=== PATIENT | male | born 1970 ===

== ENCOUNTER 2018-05-15 12:53 | Emergency (ER) | payer MEDICAID ==
[2018-05-15] MEDS ORDERED: Lidocaine 5% Patch TD STA (13:33)
--- NOTE | 2018-05-15 14:10 | RAD ---
Date of service: 05/15/2018 PROCEDURE: Radiographs of the Lumbar Spine. HISTORY: pain COMPARISON: No prior. FINDINGS: BONES: Normal alignment. No listhesis. No fracture. DISC SPACES: Mild multilevel disc space narrowing with lower lumbar anterior osteophytic changes OTHER FINDINGS: None. IMPRESSION: No acute fracture. Mild multilevel degenerative changes.
[2018-05-15] MEDS ORDERED: Lidocaine 5% Patch TD ONE (14:27)
[2018-05-15 14:38] LABS: BARBITURATES, UR NEGATIVE (NEGATIVE); BENZODIAZEPINES, UR NEGATIVE (NEGATIVE); OPIATES, UR POSITIVE (NEGATIVE); PHENCYCLIDINE, UR NEGATIVE (NEGATIVE)
[2018-05-15 14:43] LABS: URINE BACTERIA RARE (<OCC); URINE BILIRUBIN NEGATIVE (NEGATIVE); URINE BLOOD NEGATIVE (NEGATIVE); URINE COLOR YELLOW (YELLOW); URINE GLUCOSE (UA) NEG (NEGATIVE); URINE LEUKOCYTE ESTERASE TRACE Leu/uL (Negative); URINE PROTEIN NEGATIVE (NEGATIVE); URINE UROBILINOGEN 0.2-1.0 mg/dL (0.2-1.0)
[2018-05-15 14:44] LABS: URINE CLARITY SLIGHT-CLOUDY (Clear)
[2018-05-15] MEDS ORDERED: Oxycodone/Acetaminophen 5/325 mg Tab PO STA (15:43)
[2018-05-15] MEDS ORDERED: Oxycodone/Acetaminophen 5/325 mg Tab ONE (16:01)
--- NOTE | 2018-05-15 16:05 | ED PDOC ---
HPI: Back Time Seen by Provider: 05/15/18 13:23 Chief Complaint (Nursing): Back Pain Chief Complaint (Provider): Back Pain History Per: Patient History/Exam Limitations: no limitations Onset/Duration Of Symptoms: Days (x1 week) Current Symptoms Are (Timing): Still Present Additional Complaint(s): 48 year old male presents to the ED for evaluation of right buttock pain radiating down his right leg, worse with sitting down and movement, for the past week. Patient states he has been taking Tylenol and Motrin for pain, last dose yesterday afternoon, with little relief. Of note, he states that two weeks ago he developed right sided lower back pain after helping his [id number] move, but that pain resolved. 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 Otherwise denies incontinence, dysuria, hematuria, fever, chills, IV drug use, and trauma. PMD: none provided Past Medical History Reviewed: Historical Data, Nursing Documentation, Vital Signs Vital Signs: Last Vital Signs Temp 97 F L 05/15/18 13:12 Pulse 77 05/15/18 13:12 Resp 16 05/15/18 13:12 BP 131/82 05/15/18 13:12 Pulse Ox 99 05/15/18 13:12 - Medical History PMH: Hepatitis (Hep C) - Surgical History Other surgeries: skull surgery - Family History Family History: States: CAD (father) - Social History Current smoker - smoking cessation education provided: Yes Alcohol: None Drugs: Denies - Immunization History Hx Tetanus Toxoid Vaccination: No Hx Influenza Vaccination: No Hx Pneumococcal Vaccination: No - Home Medications Home Medications: Ambulatory Orders Medication Instructions Recorded Cyclobenzaprine [Cyclobenzaprine 10 mg PO Q8 #9 tab 07/04/17 HCl] Ibuprofen [Motrin] 600 mg PO TID #30 tab 07/04/17 Lidocaine 5% [Lidoderm] 1 ea TD DAILY PRN #10 patch 05/15/18 Meloxicam [Mobic] 15 mg PO DAILY PRN #10 tab 05/15/18 Methocarbamol [Robaxin] 500 mg PO TID PRN #15 tab 05/15/18 - Allergies Allergies/Adverse Reactions: Allergies Allergy/AdvReac Type Severity Reaction Status Date / Time No Known Allergies Allergy Verified 05/15/18 13:12 Review of Systems ROS Statement: Except As Marked, All Systems Reviewed And Found Negative Constitutional: Negative for: Fever, Chills Genitourinary Male: Negative for: Dysuria, Incontinence, Hematuria Musculoskeletal: Positive for: Other (right buttock pain radiatin down right leg) Physical Exam - Reviewed Nursing Documentation Reviewed: Yes Vital Signs Reviewed: Yes - Physical Exam Appears: Positive for: In Acute Distress (mild painful) Skin: Positive for: Normal Color, Warm, Dry. Negative for: Rash Pulses-Dorsalis Pedis (L): 2+ Pulses-Dorsalis Pedis (R): 2+ Gastrointestinal/Abdominal: Positive for: Normal Exam, Soft. Negative for: Tenderness Back: Positive for: Other (right buttock tenderness; straight leg raise positive right side around 30-40 degrees). Negative for: L CVA Tenderness, R CVA Tenderness, Vertebral Tenderness Extremity: Positive for: Other (5/5 bilateral LE strength) Neurologic/Psych: Positive for: Gait (steady, unassisted) - Laboratory Results Lab Results: Urine Color Yellow (YELLOW) 05/15/18 14:00 Urine Clarity Slight-cloudy (Clear) 05/15/18 14:00 Urine pH 6.0 (5.0-8.0) 05/15/18 14:00 Ur Specific Hammett 1.005 (1.003-1.030) 05/15/18 14:00 Urine Protein Negative mg/dL (NEGATIVE) 05/15/18 14:00 Urine Glucose (UA) Neg mg/dL (NEGATIVE) 05/15/18 14:00 Urine Ketones Negative mg/dL (NEGATIVE) 05/15/18 14:00 Urine Blood Negative (NEGATIVE) 05/15/18 14:00 Urine Nitrate Negative (NEGATIVE) 05/15/18 14:00 Urine Bilirubin Negative (NEGATIVE) 05/15/18 14:00 Urine Urobilinogen 0.2-1.0 mg/dL (0.2-1.0) 05/15/18 14:00 Ur Leukocyte Esterase Trace Kristina/uL (Negative) 05/15/18 14:00 Urine RBC (Auto) 1 /hpf (0-3) 05/15/18 14:00 Urine Microscopic WBC 5 /hpf (0-5) 05/15/18 14:00 Urine Bacteria Rare (<OCC) 05/15/18 14:00 - ECG O2 Sat by Pulse Oximetry: 99 (RA) Pulse Ox Interpretation: Normal Medical Decision Making Medical Decision Making: Time: 1333 Initial Impression: back pain Initial Plan: --L-spine XR --Drug screen --Lido 1 ea TD --Toradol 30mg IM --Valium 5mg PO --Urinalysis XR FINDINGS: BONES: Normal alignment. No listhesis. No fracture. DISC SPACES: Mild multilevel disc space narrowing with lower lumbar anterior osteophytic changes OTHER FINDINGS: None. IMPRESSION: No acute fracture. Mild multilevel degenerative changes. 1511 --CT L-spine --Percocet 1 tab PO --Repeat VS stable 1630 CT FINDINGS: VERTEBRAE: Unremarkable. No fracture. Normal alignment. DISCS/SPINAL CANAL/NEURAL FORAMINA: L1-2: Unremarkable. L2-3: Unremarkable. L3-4: Unremarkable. L4-5: Diffuse disc bulge. No focal disc herniation. Mild bilateral degenerative facet arthropathy. Bilateral ligamentum flavum hypertrophy. Mild bilateral neural foraminal stenosis. Mild central spinal stenosis. L5-S1: Right parasagittal disc herniation superimposed upon diffuse disc bulge. Mass-effect upon the right anterior aspect of the thecal sac. No central spinal or neural foraminal stenosis. Bilateral degenerative facet arthropathy. PARASPINAL SOFT TISSUES: Unremarkable. OTHER FINDINGS: None. IMPRESSION: Diffuse disc bulge at L4-5. Mild bilateral neural foraminal stenosis and mild central spinal stenosis. Right parasagittal disc herniation superimposed upon diffuse disc bulge at L5-S1. No spinal or neural foraminal stenosis. There mass effect upon the right anterior aspect of the thecal sac as a result of this disc herniation. Degenerative facet arthropathy at L4-5 and L5-S1. On final re-evaluation, pt. reports further improvement of pain. Informed of results. Advised to f/u with PMD for further evaluation but is to return to ED immediately if symptoms worsen. Pt. verbalized correct understanding of necessary f/u and care. Scribe Attestation: Documented by Sienna Chapman, acting as a scribe for Brandon Oneil PA-C. Provider Scribe Attestation: All medical record entries made by the Scribe were at my direction and personally dictated by me. I have reviewed the chart and agree that the record accurately reflects my personal performance of the history, physical exam, medical decision making, and the department course for this patient. I have also personally directed, reviewed, and agree with the discharge instructions and disposition. Disposition - Clinical Impression Clinical Impression: Bulging lumbar disc - Patient ED Disposition Is Patient to be Admitted: No - Disposition Referrals: [facility] [Outside] Anil Duran III, MD [Staff Provider] - Disposition: Routine/Home Disposition Time: 16:37 Condition: IMPROVED Additional Instructions: FOLLOW UP WITH ORTHO FOR FURTHER EVALUATION RETURN TO ED IMMEDIATELY IF SYMPTOMS WORSEN LESLIE MENENDEZ, thank you for letting us take care of you today. Your provider was Lupillo Cuadra MD and you were treated for RT SIDE LEG PAIN. The emergency medical care you received today was directed at your acute symptoms. If you were prescribed any medication, please fill it and take as directed. It may take several days for your symptoms to resolve. Return to the Emergency Department if your symptoms worsen, do not improve, or if you have any other problems. Please contact your doctor or call one of the physicians/clinics you have been referred to that are listed on the Patient Visit Information form that is included in your discharge packet. Bring any paperwork you were given at discharge with you along with any medications you are taking to your follow up visit. Our treatment cannot replace ongoing medical care by a primary care provider outside of the emergency department. Thank you for allowing the [email or web address] team to be part of your care today. If you had an X-Ray or CT scan: A Radiologist will review the ED reading if any change in treatment is needed we will contact you. If you had a blood, urine, or wound culture: It will take several days for the results, if any change in treatment is needed we will contact you. If you had an STI test: It will take 48 hours for the results. Please call after 1 week if you have not heard back. Prescriptions: Lidocaine 5% [Lidoderm] 1 ea TD DAILY PRN #10 patch PRN Reason: Pain Meloxicam [Mobic] 15 mg PO DAILY PRN #10 tab PRN Reason: Pain Methocarbamol [Robaxin] 500 mg PO TID PRN #15 tab PRN Reason: Muscle Spasm Instructions: Herniated Disc (DC) Forms: [employer] [facility] ([place]), [facility] ED School/Work Excuse
[2018-05-15 16:23] VITALS: BP 129/71; PULSE 75; RESP 18; TEMP 98.1
--- NOTE | 2018-05-15 16:33 | CT ---
Date of service: 05/15/2018 PROCEDURE: CT Lumbar Spine without contrast HISTORY: R sided low back pain; opiate use COMPARISON: None available TECHNIQUE: Axial computed tomography images were obtained of the lumbar spine without the use of intravenous contrast. Coronal and sagittal reformatted images were created and reviewed. Radiation dose: Total exam DLP = 410.8 mGy-cm. This CT exam was performed using one or more of the following dose reduction techniques: Automated exposure control, adjustment of the mA and/or kV according to patient size, and/or use of iterative reconstruction technique. FINDINGS: VERTEBRAE: Unremarkable. No fracture. Normal alignment. DISCS/SPINAL CANAL/NEURAL FORAMINA: L1-2: Unremarkable. L2-3: Unremarkable. L3-4: Unremarkable. L4-5: Diffuse disc bulge. No focal disc herniation. Mild bilateral degenerative facet arthropathy. Bilateral ligamentum flavum hypertrophy. Mild bilateral neural foraminal stenosis. Mild central spinal stenosis. L5-S1: Right parasagittal disc herniation superimposed upon diffuse disc bulge. Mass-effect upon the right anterior aspect of the thecal sac. No central spinal or neural foraminal stenosis. Bilateral degenerative facet arthropathy. PARASPINAL SOFT TISSUES: Unremarkable. OTHER FINDINGS: None. IMPRESSION: Diffuse disc bulge at L4-5. Mild bilateral neural foraminal stenosis and mild central spinal stenosis. Right parasagittal disc herniation superimposed upon diffuse disc bulge at L5-S1. No spinal or neural foraminal stenosis. There mass effect upon the right anterior aspect of the thecal sac as a result of this disc herniation. Degenerative facet arthropathy at L4-5 and L5-S1.
[2018-05-15 16:35] VITALS: O2SAT 99
== END 2018-05-15 16:45 | disposition home or self-care (01) ==
LOC: H.ER 12:53
DX: M48.061 Spinal stenosis, lumbar region without neurogenic claudication (principal); F17.200 Nicotine dependence, unspecified, uncomplicated; B19.20 Unspecified viral hepatitis C without hepatic coma; X50.0XXA Overexertion from strenuous movement or load, initial encounter
CPT/HCPCS: 72100; 72131; 80324; 80345; 80346; 80349; 80353; 80358; 80361; 81003; 83992; 87086; 96372; 99283; J1885